=== PATIENT | female | born 1935 | race Two or more races ===

== ENCOUNTER → 2018-07-25 06:00 | Outpatient (CLI) | payer OTHER ==
[~2018-07-25 06:00] MED LIST: AVAPRO300 MG PO; BUSPIRONE HCL10 MG PO; CELEXA20 MG PO; EXELON1 EAC1 TOP; NAMENDA5 MG PO; NORVASC2.5 M1 PO; RESTORIL30 M1 PO; TOPROL XL50 MG PO; XARELTO10 MG PO; ZOCOR40 MG PO
== END | disposition home or self-care (01) ==
LOC: EKG 06:00 → ADM 11:00 → CIR.AMB 07-29 11:00 → EDSTATUS 07-29 11:00
DX: H66.91 Otitis media, unspecified, right ear (principal); H90.11 Conductive hearing loss, unilateral, right ear, with unrestricted hearing on the contralateral side; Z01.811 Encounter for preprocedural respiratory examination